=== PATIENT | male | born 1945 | race Two or more races ===

== ENCOUNTER 2019-05-16 06:53 | Day surgery (SDC) | payer OTHER ==
[~2019-05-16 06:53] MED LIST: HYDROCHLOROTHIA50 MG PO; TOPROL XL50 M1 PO; ZOCOR40 MG PO; [UNRECOGNIZED DRUG - OTHER] PO
[2019-05-16] MEDS ORDERED: DIBUCAINE30 GM TOP (09:28)
[2019-05-16] MEDS ORDERED: PERCOCET 5-3251 EACH PO (09:28)
== END 2019-05-16 15:40 | disposition home or self-care (01) ==
LOC: CIR.AMB 06:53
DX: K64.8 Other hemorrhoids (principal); K60.1 Chronic anal fissure